=== PATIENT | female | born 1970 | race Caucasian/White ===

== ENCOUNTER 2022-03-19 08:20 | Outpatient (CLI) | payer OTHER, SELFPAY ==
[2022-03-19 14:29] LABS: Cholesterol* 197 mg/dL (90-199); Glucose* 97 mg/dL (60-115); Triglycerides* 188 mg/dL (40-149)
[2022-03-19 14:30] LABS: HDL Cholesterol* 73 mg/dL (>=50); LDL Cholesterol Calculated 86 mg/dL (<100)
== END 2022-03-19 08:21 | disposition home or self-care (01) ==
PROVIDERS: Visit Provider Physician Assistant
DX: Z01.419 Encounter for gynecological examination (general) (routine) without abnormal findings (principal); Z12.4 Encounter for screening for malignant neoplasm of cervix; Z13.6 Encounter for screening for cardiovascular disorders; Z13.1 Encounter for screening for diabetes mellitus
CPT/HCPCS: 80061; 82947; 87624

== ENCOUNTER 2024-02-24 11:11 | Outpatient (CLI) | payer OTHER, SELFPAY | END 2024-02-24 11:12 | disposition home or self-care (01) | PROVIDERS: Visit Provider Physician Assistant | DX: N91.2 Amenorrhea, unspecified (principal); Z13.220 Encounter for screening for lipoid disorders; Z13.228 Encounter for screening for other metabolic disorders | CPT/HCPCS: 80053; 80061; 83001; 84443 ==

== ENCOUNTER 2025-03-25 13:38 | Outpatient (CLI) | payer OTHER, SELFPAY | END 2025-03-25 13:39 | disposition home or self-care (01) | PROVIDERS: Visit Provider Physician Assistant | DX: Z00.00 Encounter for general adult medical examination without abnormal findings (principal); E66.9 Obesity, unspecified; Z13.29 Encounter for screening for other suspected endocrine disorder; Z13.0 Encounter for screening for diseases of the blood and blood-forming organs and certain disorders involving the immune mechanism | CPT/HCPCS: 80053; 82728; 83001; 84443 ==